=== PATIENT | female | born 1960 | race Caucasian/White ===

== ENCOUNTER 2019-02-20 13:34 | Emergency (ER) | payer OTHER ==
[2019-02-20 13:48] VITALS: BP 146/81
[2019-02-20 13:56] LABS: GLUCOSE, URINE (UA) 100 mg/dL (NEGATIVE); KETONES,URINE (UA) NEGATIVE (NEGATIVE)
[2019-02-20 13:57] LABS: CLARITY,URINE HAZY (CLEAR)
--- NOTE | 2019-02-20 13:57 | ED Physician Documentation ---
PD HPI FEMALE - Stated complaint Stated Complaint: FEMALE - Chief complaint Chief Complaint: UTI - History obtained from History obtained from: Patient - History of Present Illness Timing - onset: How many days ago (2) Timing - duration: Days (2) Timing - details: Abrupt onset, Still present Associated symptoms: Dysuria, Urinary frequency. No: Fever, Vaginal discharge Similar symptoms before: Diagnosis (has not had UTI for many years, but feels similar to that in the past.) Recently seen: Not recently seen Review of Systems Constitutional: reports: Myalgias. denies: Fever, Chills GI: denies: Nausea, Vomiting : reports: Dysuria, Frequency. denies: Hematuria, Discharge PD PAST MEDICAL HISTORY - Past Medical History Cardiovascular: None Respiratory: None [employer]: None - Present Medications Home Medications: Ambulatory Orders Medication Instructions Recorded Confirmed Cephalexin [Keflex] 500 mg PO TID #18 capsule 02/20/19 Ibuprofen [Motrin] 600 mg PO TID PRN #25 tab 02/20/19 - Allergies Allergies/Adverse Reactions: Allergies Allergy/AdvReac Type Severity Reaction Status Date / Time Sulfa (Sulfonamide Allergy Rash Verified 02/20/19 13:48 Antibiotics) PD ED PE NORMAL - Vitals Vital signs reviewed: Yes - General General: Alert and oriented X 3, No acute distress, Well developed/nourished - Abdomen Abdomen: Soft, Non tender - Back Back: No CVA TTP - Derm Derm: Normal color, Warm and dry - Neuro Neuro: Alert and oriented X 3, No motor deficit, Normal speech Results - Vitals Vitals: Vital Signs - 24 hr 02/20/19 13:45 Temperature 36.9 C Heart Rate 77 Respiratory 18 Rate Blood Pressure 146/81 H O2 Saturation 99 Oxygen O2 Source Room air - Labs Labs: Laboratory Tests 02/20/19 13:50 Urine Color ORANGE Urine Clarity HAZY Urine pH 5.0 Ur Specific [place] 1.015 Urine Protein Urine Glucose (UA) 100 H Urine Ketones NEGATIVE Urine Occult Blood Urine Nitrite Urine Bilirubin COLOR INTERFERENCE Urine Urobilinogen Ur Leukocyte Esterase Urine RBC TNTC H Urine WBC >25 H Urine WBC Clumps PRESENT Ur Squamous Epith Cells FEW Squamous Urine Bacteria Few Ur Microscopic Review INDICATED Urine Culture Comments INDICATED PD MEDICAL DECISION MAKING - ED course Complexity details: reviewed results, considered differential, d/w patient Departure - Departure Disposition: Home, Self Care Clinical Impression: Dysuria Urinary tract infection Qualifiers: Urinary tract infection type: acute cystitis Hematuria presence: without hematuria Qualified Code(s): N30.00 - Acute cystitis without hematuria Condition: Stable Record reviewed to determine appropriate education?: Yes Instructions: ED UTI Cystitis Female Prescriptions: Cephalexin [Keflex] 500 mg PO TID #18 capsule Ibuprofen [Motrin] 600 mg PO TID PRN #25 tab PRN Reason: Pain Comments: Stay well-hydrated. Continue the phenazopyridine as needed for urinary discomfort. Add some ibuprofen 3 times a day for the next few days as well. Add Tylenol if needed for pain 2. Cephalexin antibiotic as directed for the next 6 days. I would anticipate considerable improvement over the next day or two.
[2019-02-20 14:00] LABS: BILIRUBIN,URINE COLOR INTERFERENCE (NEGATIVE)
[2019-02-20 14:08] LABS: BACTERIA,URINE Few /HPF (None Seen); RBC,URINE TNTC /HPF (0-5); SQUAMOUS EPITHELIAL CELL,UR FEW Squamous (<= Few); WBC CLUMPS,URINE PRESENT
[2019-02-20] MEDS ORDERED: PHENAZOPYRIDINE 100 MG TABLET PO STA (14:16)
[2019-02-20] MEDS ORDERED: ACETAMINOPHEN 325 MG TABLET PO STA (14:16)
[2019-02-20] MEDS ORDERED: cephALEXin 250 MG CAPSULE PO STA (14:16)
[2019-02-20] MEDS ORDERED: IBUPROFEN 600 MG TABLET PO STA (14:16)
== END 2019-02-20 14:29 | disposition home or self-care (01) ==
LOC: ED 13:34
DX: N30.00 Acute cystitis without hematuria (principal)
CPT/HCPCS: 81001; 87086; 87181; 99283; A9270; 81003